=== PATIENT | male | born 1985 | race Hispanic/Latino ===

== ENCOUNTER 2021-03-15 23:59 | Emergency (ER) | payer SELFPAY ==
[~2021-03-15] VITALS: Ht 182.9 cm; Wt 140.6 kg
[2021-03-16 00:16] VITALS: BP 132/74
[2021-03-16] MEDS ORDERED: CYCLOBENZAPRINE HCL 10 MG TABLET PO ONE (01:00)
[2021-03-16] MEDS ORDERED: SOLU-MEDROL 125MG VIAL IVP ONE (01:00)
[2021-03-16 01:45] VITALS: BP 128/78
[2021-03-16] MEDS ORDERED: CYCL5TAB PO (02:16)
[2021-03-16] MEDS ORDERED: METH4TAB3 PO (02:16)
[2021-03-16] MEDS ORDERED: HYDROCODONE/ACETAMINOPHEN 10/325 MG TAB PO ONE (02:30)
== END 2021-03-16 02:34 | disposition home or self-care (01) ==
LOC: EDH 23:59
DX: S39.012A Strain of muscle, fascia and tendon of lower back, initial encounter (principal); M47.816 Spondylosis without myelopathy or radiculopathy, lumbar region; E66.01 Morbid (severe) obesity due to excess calories; Z68.41 Body mass index [BMI] 40.0-44.9, adult; X58.XXXA Exposure to other specified factors, initial encounter; Y93.89 Activity, other specified; Y92.89 Other specified places as the place of occurrence of the external cause; Y99.8 Other external cause status
CPT/HCPCS: 72131; 96374; 99284; J2930